=== PATIENT | female | born 1990 | race Caucasian/White ===

== ENCOUNTER 2022-03-21 05:15 | Inpatient (IN) | payer MEDICAID ==
[2022-03-21] MEDS ORDERED: Lactated Ringers 1,000 ML IV ONE (06:01)
[2022-03-21] MEDS ORDERED: Ondansetron 4 MG/2 ML SDV IVPUSH ONE (06:06)
[2022-03-21] MEDS ORDERED: Lactated Ringers 1,000 ML IV SCH ×2 (06:15→10:15)
[2022-03-21] MEDS ORDERED: hydrOXYzine HCl 25 MG/ML SDV IM ONE (07:35)
[2022-03-21] MEDS ORDERED: Metoclopramide 10 MG/2 ML SDV IVPUSH PRN (09:06)
[2022-03-21] MEDS ORDERED: Bupivacaine 0.5% 30 ML SDV ONE (10:00)
[2022-03-21] MEDS ORDERED: ceFAZolin 1 GM in Sodium Chloride 0.9% 50 ML IV ONE (10:03)
[2022-03-21] MEDS ORDERED: Citric Acid/Sodium Citrate Solution 30 ML Cup PO ONE (10:03)
[2022-03-21] MEDS ORDERED: Metoclopramide 10 MG/2 ML SDV IVPUSH ONE (10:03)
[2022-03-21] MEDS ORDERED: Oxytocin/Lactated Ringers 10 UNIT/1,000 ML BAG IV SCH (10:15)
[2022-03-21] MEDS ORDERED: Citric Acid/Sodium Citrate Solution 30 ML Cup ONE (10:17)
[2022-03-21] MEDS ORDERED: Meperidine 50 MG/ML Vial IVPUSH PRN (10:26)
[2022-03-21] MEDS ORDERED: fentaNYL 100 MCG/2 ML SDV IVPUSH PRN (10:26)
[2022-03-21] MEDS ORDERED: Ondansetron 4 MG/2 ML SDV IVPUSH PRN (10:26)
[2022-03-21] MEDS ORDERED: diphenhydrAMINE 50 MG/ML SDV IVPUSH PRN (10:26)
[2022-03-21] MEDS ORDERED: Ondansetron 4 MG/2 ML SDV ONE (10:34)
[2022-03-21] MEDS ORDERED: Ketorolac 30 MG/ML SDV ONE (10:34)
[2022-03-21] MEDS ORDERED: Lactated Ringers 2,000 ML ONE (10:34)
[2022-03-21] MEDS ORDERED: Oxytocin 10 Units/1 ML SDV ONE ×2 (10:34→10:35)
[2022-03-21] MEDS ORDERED: Morphine PF 1 MG/ML Amp ONE (10:35)
[2022-03-21] MEDS ORDERED: Phenylephrine HCl In 0.9% NaCl 1 MG/10 ML Vial ONE (10:51)
[2022-03-21] MEDS ORDERED: ePHEDrine 50 MG/ML SDV IVPUSH PRN (12:03)
[2022-03-21] MEDS ORDERED: Naloxone 0.4 MG/ML SDV IVPUSH PRN (12:03)
[2022-03-21] MEDS ORDERED: Dextrose 5%-Lactated Ringers 1,000 ML IV SCH (12:03)
[2022-03-21] MEDS ORDERED: Ondansetron 4 MG/2 ML SDV IV PRN (12:03)
[2022-03-21] MEDS: Simethicone 80 MG Tab.Chew PO SCH ×3 (12:54→23:14)
[2022-03-21] MEDS: diphenhydrAMINE 50 MG/ML SDV IVPUSH PRN ×2 (13:51→19:53)
[2022-03-21] MEDS: Misoprostol 200 MCG Tab PO SCH ×2 (15:31→19:42)
[2022-03-21] MEDS: Ibuprofen 600 MG Tab PO SCH ×2 (16:33→23:14)
[2022-03-21] MEDS: Docusate Sodium 100 MG Cap PO SCH (16:56)
[2022-03-21] MEDS: Acetaminophen/oxyCODONE 325-5 MG Tab PO PRN (19:58)
[2022-03-22] MEDS: Acetaminophen/oxyCODONE 325-5 MG Tab PO PRN ×5 (00:54→21:04)
[2022-03-22] MEDS: Docusate Sodium 100 MG Cap PO SCH ×2 (00:56→14:21)
[2022-03-22] MEDS: Ibuprofen 600 MG Tab PO SCH ×4 (05:24→21:04)
[2022-03-22] MEDS: Simethicone 80 MG Tab.Chew PO SCH ×3 (10:08→21:06)
[2022-03-23] MEDS: Ibuprofen 600 MG Tab PO SCH (04:16)
[2022-03-23] MEDS: Acetaminophen/oxyCODONE 325-5 MG Tab PO PRN ×2 (04:17→09:28)
[2022-03-23] MEDS: Simethicone 80 MG Tab.Chew PO SCH (09:27)
== END 2022-03-23 11:30 | disposition home or self-care (01) | DRG 787 ==
LOC: JD.OBCHECK 05:15 → JD.OB 05:19 → JD.OBCHECK 10:03 → JD.OB 10:03
PROVIDERS: ADMIT Obstetrics & Gynecology; ATTEND Obstetrics & Gynecology
PROC: 10D00Z1 Extraction of Products of Conception, Low, Open Approach (ICD-10-PCS; principal; 2022-03-21)
PROC: 3E0334Z Introduction of Serum, Toxoid and Vaccine into Peripheral Vein, Percutaneous Approach (ICD-10-PCS; 2022-03-21)
DX: O34.211 Maternal care for low transverse scar from previous cesarean delivery (principal); O99.324 Drug use complicating childbirth; O26.893 Other specified pregnancy related conditions, third trimester; F12.90 Cannabis use, unspecified, uncomplicated; Z37.0 Single live birth; Z3A.37 37 weeks gestation of pregnancy; Z88.1 Allergy status to other antibiotic agents; Z87.891 Personal history of nicotine dependence; Z67.41 Type O blood, Rh negative
CPT/HCPCS: 36415; 36430; 59025; 80053; 80306; 82570; 83615; 84156; 84560; 85025; 85461; 86592; 86850; 86870; 86900; 86901; A9270-GY; J1200; J1885; J2274; J2405; J2590; J2765; J2790; J3410; J3490; J7120; J7121

== ENCOUNTER 2024-11-27 10:41 | Emergency (ER) | payer MEDICAID ==
[2024-11-27] MEDS: cefTRIAXone 1 GM, Lidocaine 1% 2.1 ML IM ONE (12:02)
== END 2024-11-27 11:52 | disposition home or self-care (01) ==
LOC: JD.ED 10:41 → MERGE 10:41 → JD.ED 11:52
DX: K04.7 Periapical abscess without sinus (principal); F17.200 Nicotine dependence, unspecified, uncomplicated; Z88.1 Allergy status to other antibiotic agents; Z79.899 Other long term (current) drug therapy
CPT/HCPCS: 96372; 99282; 99283; J0696; J2003